=== PATIENT | female | born 1990 | race Caucasian/White ===

== ENCOUNTER 2017-03-31 15:59 | Emergency (ER) | payer SELFPAY ==
[2017-03-31 16:00] VITALS: BP 127/71; PULSE 77; RESP 24; TEMP 98.8; O2SAT 100
[2017-03-31] MEDS ORDERED: KETOROLAC TROMETHAMINE 30 MG/ML (IVP) VIAL IV PUSH ONE (16:30)
[2017-03-31 16:47] LABS: BILIRUBIN, URINE NEG (NEG); BLOOD, URINE NEG (NEG); GLUCOSE,URINE NEG (NEG); KETONE, URINE NEG (NEG); NITRITE,URINE NEG (NEG); PH, URINE 7.5 (5.0-8.5); SQUAMOUS EPITHELIAL CELL URINE <1 /hpf (0-5); URINE COLOR YELLOW (YELLW/STRAW); URINE LEUKOCYTE ESTERASE NEG (NEG)
[2017-03-31 16:48] LABS: AUTOMATED NEUTROPHIL # 4.3 TH/MM3 (1.8-7.7); BASOPHIL # 0.1 TH/MM3 (0-0.2); BASOPHIL % 0.9 % (0.0-2.0); EOSINOPHIL # 0.1 TH/MM3 (0-0.4); EOSINOPHIL % 1.6 % (0.0-4.0); HEMATOCRIT 39.6 % (35.0-46.0); HEMOGLOBIN 13.8 GM/DL (11.6-15.3); LYMPH % 30.5 % (9.0-44.0); LYMPHOCYTE # 2.3 TH/MM3 (1.0-4.8); MEAN CELL VOLUME 82.9 FL (80.0-100.0); MEAN CORPUSCULAR HEMOGLOBIN 28.8 PG (27.0-34.0); MEAN CORPUSCULAR HGB CONC 34.8 % (32.0-36.0); MEAN PLATELET VOLUME 8.1 FL (7.0-11.0); MONO % 9.4 % (0.0-8.0); MONOCYTE # 0.7 TH/MM3 (0-0.9); NEUT % 57.6 % (16.0-70.0); PLATELET COUNT 262 TH/MM3 (150-450); RED BLOOD COUNT 4.78 MIL/MM3 (4.00-5.30); RED CELL DISTRIBUTION WIDTH 12.5 % (11.6-17.2); WHITE BLOOD COUNT 7.4 TH/MM3 (4.0-11.0)
[2017-03-31 16:59] LABS: ALBUMIN 3.8 GM/DL (3.4-5.0); ALT (GPT) 26 U/L (10-53); AST (GOT) 22 U/L (15-37); BICARBONATE 25.1 MEQ/L (21.0-32.0); BLOOD UREA NITROGEN 14 MG/DL (7-18); CALCIUM 8.6 MG/DL (8.5-10.1); CHLORIDE 106 MEQ/L (98-107); CREATININE 0.68 MG/DL (0.50-1.00); GLOMERULAR FILTRATION RATE 105 ML/MIN (>89); GLUCOSE,RANDOM 96 MG/DL (74-106); SODIUM (NA) 139 MEQ/L (136-145)
[2017-03-31 17:02] LABS: ALKALINE PHOSPHATASE 62 U/L (45-117); TOTAL BILIRUBIN ADULT 0.5 MG/DL (0.2-1.0); TOTAL PROTEIN 7.8 GM/DL (6.4-8.2)
[2017-03-31] MEDS ORDERED: ACETAMINOPHEN 1000 MG/100 ML 100 ML IV ONE (17:30)
--- NOTE | 2017-03-31 17:45 | RADRPT ---
EXAM DATE/TIME: 03/31/2017 17:16 [place] COMPARISON: No previous studies available for comparison. INDICATIONS : Right upper quadrant pain. MEDICAL HISTORY : Abdominal pain. SURGICAL HISTORY : Appendectomy. ENCOUNTER: Initial ACUITY: 7-11 months PAIN SCORE: 8/10 LOCATION: Right upper quadrant MEASUREMENTS: LIVER: 15.9 cm length COMMON DUCT: 3 mm RIGHT KIDNEY: 10.6 x 5.5 x 4.1 cm FINDINGS: Numerous gallstones are present without gallbladder wall thickening, or pericholecystic fluid. The v isualized liver, head of the pancreas, and right kidney appear grossly intact for technique. CONCLUSION: Cholelithiasis. Maria Del Carmen Marshall MD on March 31, 2017 at 17:42 Board Certified Radiologist. This report was verified electronically.
[2017-03-31] MEDS ORDERED: RANI150T PO (17:50)
[2017-03-31] MEDS ORDERED: HYDR-4107 PO (17:50)
--- NOTE | 2017-03-31 17:50 | PD ---
HPI Chief Complaint: GI Complaint Time Seen by Provider: 16:33 Travel History International Travel<30 days: No Contact w/Intl Traveler<30days: No Traveled to known affect area: No History of Present Illness HPI 26-year-old woman who presents to the emergency department complaining of abdominal pain. She has had it for months. States it happens daily, worse after eating, and has been getting steadily worse, especially yesterday and today. She is a little bit of diarrhea with it, as well as little bit of nausea but no vomiting. Loose stools happen just when she gets the pain. No urinary symptoms. No vaginal discharge or vaginal bleeding. She has a history of an appendectomy but no other abdominal surgeries. Only occasional alcohol, rarely uses NSAIDs. No history of gastritis or GERD in the past that she knows of. No history of gallbladder problems. History Past Medical History Medical History: Denies Significant Hx Tetanus Vaccination: Never Vaccinated Influenza Vaccination: No LMP: 02/26/2017 : 0 Para: 0 Social History Alcohol Use: Yes (occ) Tobacco Use: No Allergies-Medications (Allergen,Severity, Reaction): Coded Allergies: No Known Allergies (Unverified , 03/31/17) Reported Meds & Prescriptions Reported Meds & Active Scripts Active No Active Prescriptions or Reported Medications Review of Systems Except as stated in HPI: all other systems reviewed are Neg Physical Exam Narrative GENERAL: Well-appearing 26-year-old woman, no acute distress. Appears uncomfortable but nontoxic. SKIN: Focused skin assessment warm/dry. HEAD: Atraumatic. Normocephalic. EYES: Pupils equal and round. No scleral icterus. No injection or drainage. ENT: No nasal bleeding or discharge. Mucous membranes pink and moist. NECK: Trachea midline. No JVD. CARDIOVASCULAR: Regular rate and rhythm. No murmur appreciated. RESPIRATORY: No accessory muscle use. Clear to auscultation. Breath sounds equal bilaterally. GASTROINTESTINAL: Abdomen is obese and soft with epigastric right upper quadrant tenderness to palpation. No significant rebound or guarding. Negative Mcdaniels's. MUSCULOSKELETAL: No obvious deformities. No clubbing. No cyanosis. No edema. NEUROLOGICAL: Awake and alert. No obvious cranial nerve deficits. Motor grossly within normal limits. Normal speech. PSYCHIATRIC: Appropriate mood and affect; insight and judgment normal. Data Data Last Documented VS Vital Signs Date Time Temp Pulse Resp B/P (MAP) Pulse Ox O2 Delivery O2 Flow Rate FiO2 03/31/17 16:00 98.8 77 24 127/71 (89) 100 Orders Orders Complete Blood Count With Diff (03/31/17 16:13) Comprehensive Metabolic Panel (03/31/17 16:13) Lipase (03/31/17 16:13) Urinalysis - C+S If Indicated (03/31/17 16:13) Iv Access Insert/Monitor (03/31/17 16:13) Ed Urine Pregnancytest Poc (03/31/17 16:13) Ketorolac Inj (Toradol Inj) (03/31/17 16:30) Us Abdomen Gallbladder (03/31/17 ) Acetaminophen 1000 Mg/100 Ml (Ofirmev 10 (03/31/17 17:30) Labs Laboratory Tests Test 03/31/17 16:25 03/31/17 16:30 White Blood Count 7.4 TH/MM3 Red Blood Count 4.78 MIL/MM3 Hemoglobin 13.8 GM/DL Hematocrit 39.6 % Mean Corpuscular Volume 82.9 FL Mean Corpuscular Hemoglobin 28.8 PG Mean Corpuscular Hemoglobin Concent 34.8 % Red Cell Distribution Width 12.5 % Platelet Count 262 TH/MM3 Mean Platelet Volume 8.1 FL Neutrophils (%) (Auto) 57.6 % Lymphocytes (%) (Auto) 30.5 % Monocytes (%) (Auto) 9.4 % Eosinophils (%) (Auto) 1.6 % Basophils (%) (Auto) 0.9 % Neutrophils # (Auto) 4.3 TH/MM3 Lymphocytes # (Auto) 2.3 TH/MM3 Monocytes # (Auto) 0.7 TH/MM3 Eosinophils # (Auto) 0.1 TH/MM3 Basophils # (Auto) 0.1 TH/MM3 CBC Comment DIFF FINAL Differential Comment Blood Urea Nitrogen 14 MG/DL Creatinine 0.68 MG/DL Random Glucose 96 MG/DL Total Protein 7.8 GM/DL Albumin 3.8 GM/DL Calcium Level 8.6 MG/DL Alkaline Phosphatase 62 U/L Aspartate Amino Transf (AST/SGOT) 22 U/L Alanine Aminotransferase (ALT/SGPT) 26 U/L Total Bilirubin 0.5 MG/DL Sodium Level 139 MEQ/L Potassium Level 4.0 MEQ/L Chloride Level 106 MEQ/L Carbon Dioxide Level 25.1 MEQ/L Anion Gap 8 MEQ/L Estimat Glomerular Filtration Rate 105 ML/MIN Lipase 213 U/L Urine Color YELLOW Urine Turbidity CLEAR Urine pH 7.5 Urine Specific [place] 1.013 Urine Protein NEG mg/dL Urine Glucose (UA) NEG mg/dL Urine Ketones NEG mg/dL Urine Occult Blood NEG Urine Nitrite NEG Urine Bilirubin NEG Urine Urobilinogen LESS THAN 2.0 MG/DL Urine Leukocyte Esterase NEG Urine RBC 1 /hpf Urine WBC LESS THAN 1 /hpf Urine Squamous Epithelial Cells <1 /hpf Microscopic Urinalysis Comment CULT NOT INDICATED MDM Medical Decision Making Medical Screen Exam Complete: Yes Emergency Medical Condition: Yes Interpretation(s) LABS: CBC is unremarkable. CMP is unremarkable. Lipase is normal. UA is unremarkable. Right upper quadrant ultrasound: Cholelithiasis. No gallbladder wall thickening pericholecystic fluid or other evidence of cholecystitis. Differential Diagnosis Cholecystitis, cholelithiasis, pancreatitis, gastritis, cholelithiasis, other Narrative Course Medical decision making there is a 26-year-old presents with epigastric abdominal pain. Think is likely gastritis. She does have gallstones, but no evidence of cholecystitis. Biliary colic's also possible. She overall looks well. Recommend she follow-up with an outpatient further evaluation of her gallbladder, will treat for gastritis, outpatient follow-up. Diagnosis Primary Impression: Abdominal pain Additional Impression: Cholelithiasis Patient Instructions: General Instructions Additional Instructions: Take Lortab if needed sparingly for pain. Follow-up with her primary doctor for further evaluation. Take ranitidine as prescribed. Return to the emergency department for any new or worsening symptoms. Med/Other Pt SpecificInfo: Prescription(s) given Scripts Hydrocodone-Acetaminophen (Hydrocodone-Acetaminophen) 5-300 Mg Tab 1 TAB PO Q6H Y for PAIN, #12 TAB 0 Refills Prov: Salazar Frank MD 03/31/17 Ranitidine (Ranitidine) 150 Mg Tab 150 MG PO BID for Heartburn Management, #60 TAB 0 Refills Prov: Salazar Frank MD 03/31/17 Disposition: 01 DISCHARGE HOME Condition: Stable Salazar Frank MD Mar 31, 2017 17:50
[2017-03-31] MEDS ORDERED: MORPHINE SULFATE 2 MG/ML INJ IV PUSH ONE (18:00)
[2017-03-31] MEDS ORDERED: PANTOPRAZOLE SODIUM 40 MG VIAL IV PUSH ONE (18:00)
== END 2017-03-31 18:45 | disposition home or self-care (01) ==
LOC: NEPE 15:59
DX: K80.20 Calculus of gallbladder without cholecystitis without obstruction (principal)
CPT/HCPCS: 76705; 80053; 81001; 83690; 84703; 85025; 96374; 96375; 99284; C9113; J0131; J1885; J2270